=== PATIENT | female | born 1950 | race Caucasian/White ===

== ENCOUNTER 2020-11-15 13:23 | Emergency (ER) | payer MEDICARE, OTHER, SELFPAY ==
[2020-11-15 13:24] VITALS: BP 134/77; PULSE 88; RESP 16; TEMP 36.8; O2SAT 94; BMI 32.5
--- NOTE | 2020-11-15 14:27 | ED.VIS.GI ---
HPI HPI - GI History of Present Illness Chief Complaint: Diarrhea Informant: family Narrative Narrative: Patient complains of diarrhea. This started with diarrhea on Monday, she start the watery diarrhea. It did improve with some Imodium but then started to get watery when she stopped it. No blood. She had some nausea but had taken Phenergan a couple days ago and that is much better now. She is not nauseated anymore. She is able to eat and drink but has very poor appetite. She has had no travel or antibiotic use. No known exposures. She has not gotten Covid vaccine but does not know of any when she has been around with the illness. She initially denied any other symptoms but when I listen to her lungs I noticed she had a few coarse breath sounds. At this point she did state that she had some mild coughing but does not feel short of breath. No fever. She states the highest temperature she got was 98.8. Medicines did help her symptoms. Nothing really made them worse. She had contacted her physician who recommended she come in for some IV fluids as she has had the diarrhea and really just has not been drinking much because of lack of interest. PFSH PFSH Home Medications aspirin 81 mg tablet,delayed release 81 mg PO DAILY tablet 06/04/20 [History Last Taken Unknown] cholecalciferol (vitamin D3) 125 mcg (5,000 unit) capsule 125 mcg PO DAILY 06/04/20 [History Last Taken Unknown] multivitamin with iron 1 tablet PO DAILY 06/04/20 [History Last Taken Unknown] levofloxacin 750 mg PO DAILY #7 tab 11/15/20 [Rx Last Taken Unknown] Allergy/AdvReac Type Severity Reaction Status Date / Time Penicillins Allergy PT UNSURE Verified 11/15/20 13:25 OF REACTION bandaids Allergy Rash Uncoded 11/15/20 13:25 Family History Mother Hypertension Sister Hypertension Surgical History H/O tubal ligation Social History number of children: 2 current occupational status: retired current occupation: [employer] Smoking Status: Never smoker alcohol intake: never substance use type: does not use seatbelt use: always do you feel safe at home: Yes additional social history: November 2019 Art ROS ROS ED Constitutional Constitutional ED: Denies fever(s) ENT ENT ED: Denies rhinorrhea or sore throat Cardiovascular Cardiovascular: Denies chest pain, orthopnea or palpitations Respiratory/Chest Respiratory/Chest: Reports cough; Denies dyspnea, dyspnea on exertion, orthopnea or sputum Gastrointestinal Gastrointestinal: Reports diarrhea and nausea; Denies abdominal pain, constipation, melena or vomiting Genitourinary Genitourinary ED: Denies dysuria, hematuria or urinary frequency Musculoskeletal Musculoskeletal: Denies myalgias Integumentary Denies rash Neurologic Neurologic: Denies headache(s) or weakness Psychiatric Psychiatric: Denies anxiety or depression Endocrine Endocrinology: Denies polydipsia or polyuria Hematologic/Lymphatic Hematologic/Lymphatic: Denies easy bleeding or easy bruising Allergic/Immunologic Allergic/Immunologic ED: Denies urticaria EXAM Physical Exam Const Vital Signs: 11/15/20 13:24 11/15/20 14:50 Temperature 98.2 F Temperature Source Temporal Pulse Rate 88 82 Respiratory Rate 16 12 Blood Pressure 134/77 H Blood Pressure Mean 96 Pulse Ox 94 94 Oxygen Delivery Method Room Air Room Air Positive well nourished and well developed General Appearance ED: well developed and NAD HEENT Reports dry mucous membranes normocephalic Mouth ED: Yes dry mucous membranes Mouth: dry mucous membranes Eyes PERRL and EOMs intact bilaterally Neck no JVD Resp normal respiratory effort Resp Narrative: Patient did have some very quiet rhonchi toward her left base. These did improve a little bit with a deep breath. It was at this point that the patient then admitted that she did have a mild cough but no sputum production. Auscultation: rhonchi; Negative for rales or wheezes Cardio regular rate and regular rhythm GI non-tender, non-distended and no masses Auscultation: normoactive bowel sounds Palpation: soft Back/Spine no CVA tenderness Extremity full ROM General Extremety ED: Negative for tenderness Neuro Sensorium / Orientation: alert and oriented to person Psych mental status grossly normal Skin Lesions: no lesions Rashes: no rashes MDM MDM MDM Narrative Medical decision making narrative: Patient CBC shows no marked abnormalities. Electrolytes are overall good. Sodium is minimally decreased. Minimal liver function changes. Chest x-ray is for some bilateral infiltrates. However the patient's not short of breath and her sac oxygen is 97% sitting in the room right now. She is not having any sputum production. This patient symptoms are actually most consistent with Covid. She had some congestion cough nausea diarrhea malaise decreased appetite. She was not immunized. Although her Covid screen is negative this is rapid Covid which has a fair false-negative rate. I will send off a PCR but I would likely will not get this back now. I explained to the patient that we could not treat pneumonia but her symptoms are more consistent with Covid pneumonia that would not need antibiotics. I will write for Levaquin. If her PCR comes back negative I think it is reasonable she starts the antibiotic. If she is positive for Covid I would not start Levaquin. She is comfortable going home. She will stay in contact with her physician. As long as she does not desaturate we will get her home. I suspect she will do well. She has meds for diarrhea and nausea at home. We also discussed coming back. She will call her physician about potential monoclonal therapy if her test ends up positive. She evidently has a very good rapport with her physician and can maintain close contact. Patient walked in her sats maintained 94% or better. We will get her home with the plan. Lab Data Attestation: I reviewed the patient's lab results. Labs: Laboratory Results - last 24 hr 11/15/20 11/15/20 14:50 14:50 WBC 5.2 RBC 4.45 Hgb 13.1 Hct 39.0 MCV 87.6 MCH 29.4 MCHC 33.6 RDW Std Deviation 41.9 RDW Coeff of Kellen 12.9 Plt Count 189 MPV 9.7 Immature Gran % (Auto) 0.600 Neut % (Auto) 69.6 Lymph % (Auto) 18.7 L [place] % (Auto) 10.5 H Eos % (Auto) 0.4 Baso % (Auto) 0.2 Absolute Neuts (auto) 3.7 Absolute Lymphs (auto) 0.98 Nucleated RBC % 0 Diff Path Review May foll Atypical Lymphocytes 1+ Platelet Estimate ADEQUATE RBC Morphology N CHROM Anisocytosis RARE Sodium 134 L Potassium 3.8 Chloride 96 L Carbon Dioxide 28.0 Anion Gap 10 BUN 14 Creatinine 0.83 Estim Creat Clear Calc 45.95 Est GFR (MDRD) Af Amer 87 Est GFR (MDRD) Non-Af 72 BUN/Creatinine Ratio 16.8 Glucose 90 Calcium 8.4 L Total Bilirubin 0.70 AST 121 H ALT 107 H Alkaline Phosphatase 90 Total Protein 7.2 Albumin 2.9 L Globulin 4.3 H Albumin/Globulin Ratio 0.7 L Radiography Diagnostic Testing: Radiology Impression Chest X-Ray 11/15/20 15:00 IMPRESSION: Bilateral pneumonia. Electronically Signed: Martell Webster MD at 15:40 EDT Tel , Service support , Discharge Plan Triage Chief Complaint: Diarrhea ED Provider: Lino Reid Dx/Rx/DC Orders Clinical Impression: Diarrhea, Cough Instructions: ED Diarrhea, Unknown Cause, Caring for Someone Who Has COVID-19 Prescriptions: New levofloxacin 750 mg tablet 750 mg PO DAILY Qty: 7 RF: 0 No Action multivitamin with iron [Daily Multiple Vitamins/Iron] Tablet 1 tablet PO DAILY RF: 0 aspirin [Adult Aspirin Regimen] 81 mg tablet,delayed release (DR/EC) 81 mg PO DAILY RF: 0 cholecalciferol (vitamin D3) 125 mcg (5,000 unit) capsule 125 mcg PO DAILY RF: 0 Primary Care Provider: Martell Humphrey NP Referrals: Martell Humphrey [facility], [facility] [Primary Care Provider] - 1-2 Days if not improving Disposition Disposition: Home, Self Care
[2020-11-15] MEDS: 0.9% Normal Saline 1,000 ML 1000 ML IV (14:47)
[2020-11-15 14:50] VITALS: PULSE 82; RESP 12; O2SAT 94
[2020-11-15 14:58] LABS: Absolute Lymphocyte Count 0.98 X10^3/uL (0.83-4.51); Absolute Neutrophil Count 3.7 X10^3/uL (2.0-7.7); Basophil# 0.01 X10^3/uL; Basophil% 0.2 % (0-1); Eosinophil# 0.02 X10^3/uL; Eosinophils% 0.4 % (0-5); Hemoglobin 13.1 g/dL (12.0-15.0); Lymphocyte # 0.98 X10^3/ul (0.83-4.51); Lymphocyte % 18.7 % (19-41); Mean Corp Hgb Conc 33.6 g/dL (32-36); Mean Corpuscular Hgb 29.4 pg (27.0-32.0); Mean Corpuscular Volume 87.6 fL (81-99); Mean Platelet Vol. 9.7 fl (6.2-12.0); Monocyte# 0.55 X10^3/uL; Monocyte% 10.5 % (0-10); NRBC Flagged by Analyzer 0 % (0-5); Neutrophil # 3.65 X10^3/uL (2.7-7.7); Neutrophil % 69.6 % (47-70); POSITIVE MORPHOLOGY YES; Platelet Count 189 K/mm3 (150-450); RBC Distribution Width CV 12.9 % (11.6-14.6); RBC Distribution Width SD 41.9 fl (35.1-43.9); Red Blood Count 4.45 M/mm3 (4.2-5.4); White Blood Count 5.2 K/mm3 (4.4-11.0)
--- NOTE | 2020-11-15 15:00 | RAD_ITS ---
STUDY: X-RAY CHEST REASON FOR EXAM: Female, 70 years old. cough TECHNIQUE: Single AP portable view of the chest. COMPARISON: None. FINDINGS: Patchy alveolar disease in both lungs consistent with bilateral pneumonia. There is no demonstrated pleural abnormality. Normal size heart. Normal mediastinum and lelia. Normal visualized pulmonary arteries. Normal visualized aortic arch and descending thoracic aorta. Normal visualized thoracic spine. Normal visualized ribs, clavicles, and shoulders. There is no demonstrated abnormality of the visualized soft tissue structures of the upper abdomen. RAD/Chest 1 View (Portable) IMPRESSION: Bilateral pneumonia. Electronically Signed: Martell Webster MD at 15:40 EDT Tel , Service support ,
[2020-11-15 15:07] LABS: Differential Indicated SCAN CRITERIA MET
[2020-11-15 15:14] LABS: ALB/GLOB Ratio 0.7 RATIO (0.9-2.4); AST(SGOT) 121 U/L (15-37); Alanine Aminotransfer ALT/SGPT 107 U/L (13-56); Albumin, Serum 2.9 g/dL (3.2-5.0); Alkaline Phosphatase 90 U/L (45-117); Anion Gap 10 (5-15); BUN 14 mg/dL (7-18); BUN/Creat Ratio 16.8 RATIO (10-20); Calcium,Total 8.4 mg/dL (8.5-10.1); Chloride 96 mmol/L (98-107); Creatinine, Serum 0.83 mg/dL (0.55-1.02); EST Glomerular Filtration Rate 72 mL/min (>60); Est Glom Filt Rate - Afr Amer 87 mL/min (>60); Estimated Creatinine Clearance 45.95 ml/min; Globulin 4.3 g/dL (2.2-4.2); Glucose 90 mg/dL (74-106); Potassium 3.8 mmol/L (3.5-5.1); Protein, Total 7.2 g/dL (6.4-8.2); Sodium Level 134 mmol/L (136-145)
[2020-11-15 15:29] LABS: Anisocytosis RARE; Platelet Estimate ADEQUATE (ADEQ); Red Cell Morphology N CHROM NORMAL (NORM C&C)
[2020-11-15 15:30] LABS: Atypical Lymphocyte 1+ %
[2020-11-15 16:18] VITALS: O2SAT 94
[2020-11-15 16:19] VITALS: BP 151/82; PULSE 83; RESP 18; TEMP 36.5; O2SAT 94
[2020-11-15 16:20] LABS: Bacteria 0 SEEN /hpf (None Seen); Color, Urine Yellow (Yellow); Glucose, Dipstick Normal (Normal); Ketone-Dipstick Negative (Negative); Leukocyte Esterase-Dipstick Negative /ul (Negative); Mucous, Urine 0 SEEN /hpf (<or=2+); Nitrite-Dipstick Negative (Negative); Occult Blood-Urine Negative /ul (Negative); Protein-Dipstick Negative (Negative); Red Blood Cells-Urine 0 SEEN /hpf (0-5); Specific Gravity, Urine 1.005 (1.002-1.030); Urine Bilirubin Dipstick Negative (Negative); Urine Clarity Clear (Clear); Urine Urobilinogen Normal (Normal); Urine pH 6.5 (5.0 - 8.0)
[2020-11-15 16:48] LABS: Renal Epithelial Cells 0-5 SEEN /hpf (0-5); Squamous Epithelial Cells - UA 0-5 SEEN /hpf (5-10)
[2020-11-15 16:49] LABS: White Blood Cells 0-5 SEEN /hpf (0-5)
[2020-11-15 17:49] LABS: Probe Check PASS; Specimen Processing Control PASS
[2020-11-16 15:05] LABS: Pathologist Review Reviewed
== END 2020-11-15 16:27 | disposition home or self-care (01) ==
PROVIDERS: Emergency Provider Emergency Medicine; PCP Nurse Practitioner Family
DX: R19.7 Diarrhea, unspecified (principal); R05.9 Cough, unspecified; Z79.82 Long term (current) use of aspirin; Z79.899 Other long term (current) drug therapy
CPT/HCPCS: 71045; 80053; 81001; 85025; 87426; 87635; 99283; J7030; U0005; A4216; U0003